=== PATIENT | female | born 1970 | race Caucasian/White ===

== ENCOUNTER 2017-03-09 14:41 | Emergency (ER) | payer BC, OTHER ==
[~2017-03-09] VITALS: Ht 172.7 cm; Wt 54.0 kg
[~2017-03-09 14:41] MED LIST: HYDR-3535 PO; OMEP20CA5 PO; PROM25SU8 PO; RANI150 PO; SOMA350T PO
[2017-03-09 14:45] VITALS: BP 160/90; PULSE 78; RESP 22; TEMP 97; O2SAT 100
--- NOTE | 2017-03-09 14:59 | PD ---
HPI Chief Complaint: GI Complaint Time Seen by Provider: 14:53 Travel History International Travel<30 days: Yes Contact w/Intl Traveler<30days: Yes Name of Country Traveled to: [facility] Traveled to known affect area: No History of Present Illness HPI This 46-year-old female is complaining of vomiting and diarrhea. His symptoms started earlier today and been persistent and severe. She was on a cruise and started having vomiting and diarrhea as she was getting off the boat. She says there is no chance of . She is having crampy abdominal pain and nausea PFSH Past Medical History Diminished Hearing: No Immunizations Current: Yes ?: Not LMP: 03/05/2017 : 6 Para: 3 Tubal Ligation: Yes Social History Alcohol Use: No Tobacco Use: Yes (1/2 pack a day for 20 years ) Substance Use: No Allergies-Medications (Allergen,Severity, Reaction): Coded Allergies: codeine (Unverified Allergy, Unknown, 03/09/17) "i havent taken it in forever i cant tell you" Reported Meds & Prescriptions Reported Meds & Active Scripts Active No Active Prescriptions or Reported Medications Review of Systems General / Constitutional: No: Fever, Chills Eyes: No: Diploplia, Blurred Vision HENT: No: Headaches, Vertigo Cardiovascular: No: Chest Pain or Discomfort Respiratory: No: Cough Gastrointestinal: Positive: Nausea, Vomiting, Diarrhea, Abdominal Pain Genitourinary: No: Urgency, Frequency Neurologic: No: Weakness, Dizziness Physical Exam Narrative GENERAL: Well-developed female. She arrives in distress due to nausea and vomiting SKIN: Focused skin assessment warm/dry. HEAD: Atraumatic. Normocephalic. EYES: Pupils equal and round. No scleral icterus. No injection or drainage. ENT: No nasal bleeding or discharge. Mucous membranes pink and moist. NECK: Trachea midline. No JVD. CARDIOVASCULAR: Regular rate and rhythm. No murmur appreciated. RESPIRATORY: No accessory muscle use. Clear to auscultation. Breath sounds equal bilaterally. GASTROINTESTINAL: Abdomen soft, mild diffuse tenderness, nondistended. Hepatic and splenic margins not palpable. MUSCULOSKELETAL: No obvious deformities. No clubbing. No cyanosis. No edema. NEUROLOGICAL: Awake and alert. No obvious cranial nerve deficits. Motor grossly within normal limits. Normal speech. PSYCHIATRIC: Appropriate mood and affect; insight and judgment normal. Data Data Last Documented VS Vital Signs Date Time Temp Pulse Resp B/P (MAP) Pulse Ox O2 Delivery O2 Flow Rate FiO2 03/09/17 14:45 97.0 78 22 160/90 (113) 100 Orders Orders Complete Blood Count With Diff (03/09/17 14:57) Comprehensive Metabolic Panel (03/09/17 14:57) Sodium Chlor 0.9% 1000 Ml Inj (Ns 1000 M (03/09/17 15:00) Sodium Chlor 0.9% 1000 Ml Inj (Ns 1000 M (03/09/17 15:00) Ondansetron Inj (Zofran Inj) (03/09/17 15:00) Diphenhydramine Inj (Benadryl Inj) (03/09/17 15:45) Prochlorperazine Inj (Compazine Inj) (03/09/17 15:45) Hydromorphone Pf Inj (Dilaudid Pf Inj) (03/09/17 15:45) Labs Laboratory Tests Test 03/09/17 15:00 White Blood Count 16.1 TH/MM3 Red Blood Count 5.26 MIL/MM3 Hemoglobin 15.9 GM/DL Hematocrit 48.9 % Mean Corpuscular Volume 93.1 FL Mean Corpuscular Hemoglobin 30.3 PG Mean Corpuscular Hemoglobin Concent 32.5 % Red Cell Distribution Width 14.2 % Platelet Count 320 TH/MM3 Mean Platelet Volume 8.2 FL Neutrophils (%) (Auto) 91.5 % Lymphocytes (%) (Auto) 6.1 % Monocytes (%) (Auto) 1.7 % Eosinophils (%) (Auto) 0.0 % Basophils (%) (Auto) 0.7 % Neutrophils # (Auto) 14.7 TH/MM3 Lymphocytes # (Auto) 1.0 TH/MM3 Monocytes # (Auto) 0.3 TH/MM3 Eosinophils # (Auto) 0.0 TH/MM3 Basophils # (Auto) 0.1 TH/MM3 CBC Comment DIFF FINAL Differential Comment Blood Urea Nitrogen 20 MG/DL Creatinine 1.00 MG/DL Random Glucose 150 MG/DL Total Protein 8.3 GM/DL Albumin 4.2 GM/DL Calcium Level 9.1 MG/DL Alkaline Phosphatase 112 U/L Aspartate Amino Transf (AST/SGOT) 22 U/L Alanine Aminotransferase (ALT/SGPT) 30 U/L Total Bilirubin 0.4 MG/DL Sodium Level 142 MEQ/L Potassium Level 3.7 MEQ/L Chloride Level 108 MEQ/L Carbon Dioxide Level 24.3 MEQ/L Anion Gap 10 MEQ/L Estimat Glomerular Filtration Rate 60 ML/MIN MDM Medical Decision Making Medical Screen Exam Complete: Yes Emergency Medical Condition: Yes Medical Record Reviewed: Yes Differential Diagnosis Differential includes gastroenteritis, food poisoning Narrative Course Abrupt onset is most consistent with poisoning. White count is elevated. She has been given 2 L of fluid and symptomatic treatment with improvement. She is stable for discharge Diagnosis Primary Impression: Acute gastroenteritis Scripts Ondansetron Odt (Zofran Odt) 4 Mg Tab 4 MG SL Q6HR Y for Nausea/Vomiting, #10 TAB 0 Refills Prov: Cristi Cook MD 03/09/17 Disposition: 01 DISCHARGE HOME Condition: Stable Cristi Cook MD Mar 09, 2017 14:59
[2017-03-09] MEDS ORDERED: ONDANSETRON HCL 4 MG/2 ML VIAL IV PUSH ONE (15:00)
[2017-03-09] MEDS ORDERED: SODIUM CHLOR 0.9% 1000 ML INJ 1,000 ML IV ONE ×2 (15:00)
[2017-03-09 15:25] LABS: AUTOMATED NEUTROPHIL # 14.7 TH/MM3 (1.8-7.7); BASOPHIL # 0.1 TH/MM3 (0-0.2); BASOPHIL % 0.7 % (0.0-2.0); HEMATOCRIT 48.9 % (35.0-46.0); HEMOGLOBIN 15.9 GM/DL (11.6-15.3); LYMPH % 6.1 % (9.0-44.0); MEAN CELL VOLUME 93.1 FL (80.0-100.0); MEAN CORPUSCULAR HEMOGLOBIN 30.3 PG (27.0-34.0); MEAN CORPUSCULAR HGB CONC 32.5 % (32.0-36.0); MEAN PLATELET VOLUME 8.2 FL (7.0-11.0); MONO % 1.7 % (0.0-8.0); MONOCYTE # 0.3 TH/MM3 (0-0.9); NEUT % 91.5 % (16.0-70.0); PLATELET COUNT 320 TH/MM3 (150-450); RED BLOOD COUNT 5.26 MIL/MM3 (4.00-5.30); RED CELL DISTRIBUTION WIDTH 14.2 % (11.6-17.2); WHITE BLOOD COUNT 16.1 TH/MM3 (4.0-11.0)
[2017-03-09 15:34] LABS: CHLORIDE 108 MEQ/L (98-107); SODIUM (NA) 142 MEQ/L (136-145)
[2017-03-09 15:39] LABS: ALBUMIN 4.2 GM/DL (3.4-5.0); BICARBONATE 24.3 MEQ/L (21.0-32.0); CALCIUM 9.1 MG/DL (8.5-10.1); GLUCOSE,RANDOM 150 MG/DL (74-106)
[2017-03-09 15:40] LABS: BLOOD UREA NITROGEN 20 MG/DL (7-18)
[2017-03-09 15:42] LABS: ALT (GPT) 30 U/L (10-53)
[2017-03-09 15:43] LABS: AST (GOT) 22 U/L (15-37); GLOMERULAR FILTRATION RATE 60 ML/MIN (>89)
[2017-03-09 15:44] LABS: TOTAL BILIRUBIN ADULT 0.4 MG/DL (0.2-1.0); TOTAL PROTEIN 8.3 GM/DL (6.4-8.2)
[2017-03-09 15:45] LABS: ALKALINE PHOSPHATASE 112 U/L (45-117)
[2017-03-09] MEDS ORDERED: HYDROmorphone HCL PF 2 MG/ML VIAL IV PUSH ONE (15:45)
[2017-03-09] MEDS ORDERED: diphenhydrAMINE HCL 50 MG/ML VIAL IV PUSH ONE (15:45)
[2017-03-09] MEDS ORDERED: HYDROmorphone HCL PF 1 MG/ML VIAL IV PUSH ONE (15:45)
[2017-03-09] MEDS ORDERED: PROCHLORPERAZINE INJ 10 MG/2 ML VIAL IV PUSH ONE (15:45)
[2017-03-09] MEDS ORDERED: ZOFR4TAB3 SL (16:05)
[2017-03-09 16:10] VITALS: BP 153/78; PULSE 73; RESP 16; O2SAT 99
[2017-03-09 16:17] VITALS: RESP 16
--- NOTE | 2017-03-09 17:08 | PD ---
Physical Exam Narrative Patient was seen by ED physician and signed out to me. Data Data Last Documented VS Vital Signs Date Time Temp Pulse Resp B/P (MAP) Pulse Ox O2 Delivery O2 Flow Rate FiO2 03/09/17 16:10 73 16 153/78 (103) 99 Room Air 03/09/17 14:45 97.0 Orders Orders Complete Blood Count With Diff (03/09/17 14:57) Comprehensive Metabolic Panel (03/09/17 14:57) Sodium Chlor 0.9% 1000 Ml Inj (Ns 1000 M (03/09/17 15:00) Sodium Chlor 0.9% 1000 Ml Inj (Ns 1000 M (03/09/17 15:00) Ondansetron Inj (Zofran Inj) (03/09/17 15:00) Diphenhydramine Inj (Benadryl Inj) (03/09/17 15:45) Prochlorperazine Inj (Compazine Inj) (03/09/17 15:45) Hydromorphone Pf Inj (Dilaudid Pf Inj) (03/09/17 15:45) Ed Discharge Order (03/09/17 17:15) Labs Laboratory Tests Test 03/09/17 15:00 White Blood Count 16.1 TH/MM3 Red Blood Count 5.26 MIL/MM3 Hemoglobin 15.9 GM/DL Hematocrit 48.9 % Mean Corpuscular Volume 93.1 FL Mean Corpuscular Hemoglobin 30.3 PG Mean Corpuscular Hemoglobin Concent 32.5 % Red Cell Distribution Width 14.2 % Platelet Count 320 TH/MM3 Mean Platelet Volume 8.2 FL Neutrophils (%) (Auto) 91.5 % Lymphocytes (%) (Auto) 6.1 % Monocytes (%) (Auto) 1.7 % Eosinophils (%) (Auto) 0.0 % Basophils (%) (Auto) 0.7 % Neutrophils # (Auto) 14.7 TH/MM3 Lymphocytes # (Auto) 1.0 TH/MM3 Monocytes # (Auto) 0.3 TH/MM3 Eosinophils # (Auto) 0.0 TH/MM3 Basophils # (Auto) 0.1 TH/MM3 CBC Comment DIFF FINAL Differential Comment Blood Urea Nitrogen 20 MG/DL Creatinine 1.00 MG/DL Random Glucose 150 MG/DL Total Protein 8.3 GM/DL Albumin 4.2 GM/DL Calcium Level 9.1 MG/DL Alkaline Phosphatase 112 U/L Aspartate Amino Transf (AST/SGOT) 22 U/L Alanine Aminotransferase (ALT/SGPT) 30 U/L Total Bilirubin 0.4 MG/DL Sodium Level 142 MEQ/L Potassium Level 3.7 MEQ/L Chloride Level 108 MEQ/L Carbon Dioxide Level 24.3 MEQ/L Anion Gap 10 MEQ/L Estimat Glomerular Filtration Rate 60 ML/MIN MDM Supervised Visit with ROBY: No Interpretation(s) 1707 p.m. CBC WBC 16.1. Hemoglobin 15.9 hematocrit 40.9. 91 neutrophil. CMP with BUN of 20. Glucose 150. Narrative Course 1716 p.m. Reexamination patient's feeling better. Patient wants to go home. Diagnosis Primary Impression: Acute gastroenteritis Referrals: NO PRIMARY CARE PHYSICIAN (PCP) Patient Instructions: General Instructions Departure Forms: Tests/Procedures Additional Instruction: Clear fluids today and advance diet tomorrow. Take medication as needed. Follow-up with personal physician. Return if persistent problem or worse. Over -the-counter Imodium for diarrhea. Med/Other Pt SpecificInfo: Prescription(s) given Scripts Dicyclomine (Bentyl) 10 Mg Cap 10 MG PO TID Y for Bowel Management, #15 CAP 0 Refills Prov: Ray Crouch MD 03/09/17 Ondansetron Odt (Zofran Odt) 4 Mg Tab 4 MG SL Q6HR Y for Nausea/Vomiting, #10 TAB 0 Refills Prov: Cristi Cook MD 03/09/17 Disposition: 01 DISCHARGE HOME Condition: Stable Ray Crouch MD Mar 09, 2017 17:08
[2017-03-09 17:15] VITALS: BP 154/74; PULSE 70; RESP 16; O2SAT 99
[2017-03-09] MEDS ORDERED: DICY10 PO (17:17)
== END 2017-03-09 17:39 | disposition home or self-care (01) ==
LOC: PHED 14:41
DX: K52.9 Noninfective gastroenteritis and colitis, unspecified (principal); D72.829 Elevated white blood cell count, unspecified; R10.9 Unspecified abdominal pain; F17.200 Nicotine dependence, unspecified, uncomplicated
CPT/HCPCS: 80053; 85025; 96361; 96374; 96375; 99284; J0780; J1170; J1200; J2405; J7030